=== PATIENT | female | born 1970 | race African-American/Black ===

== ENCOUNTER 2017-11-28 00:31 | Emergency (ER) | payer MEDICAID ==
[~2017-11-28] VITALS: Ht 180.3 cm; Wt 86.0 kg
[2017-11-28] MEDS ORDERED: HYDROCODONE/ACETAMINOPHEN 5/325MG TABLET PO ONE (01:15)
[2017-11-28] MEDS ORDERED: KETOROLAC 60MG/2ML VIAL IM ONE (01:30)
[2017-11-28 04:56] VITALS: BP 129/81
== END 2017-11-28 05:07 | disposition home or self-care (01) ==
LOC: ER 00:31
DX: S20.219A Contusion of unspecified front wall of thorax, initial encounter (principal); S93.401A Sprain of unspecified ligament of right ankle, initial encounter; I10 Essential (primary) hypertension; J45.909 Unspecified asthma, uncomplicated; F17.200 Nicotine dependence, unspecified, uncomplicated; V43.52XA Car driver injured in collision with other type car in traffic accident, initial encounter; Y93.9 Activity, unspecified; Y92.410 Unspecified street and highway as the place of occurrence of the external cause
CPT/HCPCS: 29515; 71250; 72125; 73564; 73610; 74176; 96372; 99284; J1885; Z7610

== ENCOUNTER 2022-11-03 13:42 | Emergency (ER) | payer OTHER, MEDICAID ==
[~2022-11-03] VITALS: Ht 180.3 cm; Wt 91.0 kg
[2022-11-03 13:46] VITALS: BP 168/89
[2022-11-03] MEDS ORDERED: ALBU6.7H3 INH (13:56)
[2022-11-03] MEDS ORDERED: P50 MT (13:56)
== END 2022-11-03 14:14 | disposition home or self-care (01) ==
LOC: ER 13:42
DX: J45.901 Unspecified asthma with (acute) exacerbation (principal); I10 Essential (primary) hypertension
CPT/HCPCS: 99283

== ENCOUNTER 2023-08-20 03:04 | Emergency (ER) | payer MEDICAID, OTHER ==
[~2023-08-20] VITALS: Ht 167.6 cm; Wt 75.0 kg
[~2023-08-20 03:04] MED LIST: ALBU6.7H3 INH; P50 MT
[2023-08-20 03:13] VITALS: BP 126/81; TEMP 98.3
[2023-08-20] MEDS ORDERED: IPRATROPIUM BROMIDE (0.02%) 0.5MG/2.5ML NEB HHN STA (03:42)
[2023-08-20] MEDS ORDERED: MAGNESIUM 2 G PREMIX 50 ML IV STA (03:42)
[2023-08-20] MEDS ORDERED: ALBUTEROL (0.083%) 2.5MG/3ML NEB HHN STA (03:42)
[2023-08-20] MEDS ORDERED: METHYLPREDNISOLONE SOD SUCC 125MG/2ML (ACT-O-VIAL) IV STA (03:42)
[2023-08-20 04:04] VITALS: PULSE 92; RESP 20; O2SAT 96
[2023-08-20] MEDS ORDERED: P20 MT (06:15)
[2023-08-20] MEDS ORDERED: FURO-152 MT (06:15)
[2023-08-20] MEDS ORDERED: ALBU6.7H15 INH (06:15)
[2023-08-20] MEDS ORDERED: AMOX-494 MT (06:15)
== END 2023-08-20 06:57 | disposition home or self-care (01) ==
LOC: ER 03:45
DX: J45.901 Unspecified asthma with (acute) exacerbation (principal)
CPT/HCPCS: 94640; 96374; 99283; J3475; J2930; Z7610 ×3